=== PATIENT | male | born 1960 | race Caucasian/White ===

== ENCOUNTER 2020-03-01 08:56 | Outpatient (CLI) | payer BC, SELFPAY ==
[2020-03-04 09:51] LABS: COVID-19 RT-PCR Result Negative (Negative)
== END 2020-03-01 09:16 ==
PROVIDERS: PCP Family Medicine; Visit Provider Nurse Practitioner Family
DX: R05 Cough (principal); R06.02 Shortness of breath; R50.9 Fever, unspecified
CPT/HCPCS: U0003

== ENCOUNTER 2021-04-18 20:47 | Outpatient (REF) | payer BC, SELFPAY ==
[2021-04-18 21:16] LABS: ALT 29 U/L (16-63); AST 16 U/L (15-37); Albumin 3.9 g/dL (3.4-5.0); Alkaline Phosphatase 107 U/L (46-116); Anion Gap 8.8 mmol/L (3-11); BUN 18 mg/dL (7-18); Bilirubin, Total 0.6 mg/dL (0.2-1.0); CO2 28.2 mmol/L (21.0-32.0); Calcium 9.2 mg/dL (8.5-10.1); Calculated LDL 125 mg/dL (<100); Chloride 105 mmol/L (98-107); Cholesterol 203 mg/dL (<200); Glucose 89 mg/dL (74-106); HDL Cholesterol 32 mg/dL (40-60); Potassium 4.2 mmol/L (3.5-5.1); Sodium 142 mmol/L (136-145); Total Protein 7.7 g/dL (6.4-8.2); Triglyceride 232 mg/dL (<150)
[2021-04-18 21:45] LABS: Hemoglobin A1C 6.2 % (<5.7)
== END 2021-04-18 20:48 | disposition home or self-care (01) ==
LOC: LBN 20:47
PROVIDERS: PCP Nurse Practitioner Family; Visit Provider Nurse Practitioner Family
DX: Z00.00 Encounter for general adult medical examination without abnormal findings (principal); Z13.220 Encounter for screening for lipoid disorders; Z13.1 Encounter for screening for diabetes mellitus
CPT/HCPCS: 80053; 80061; 83036

== ENCOUNTER 2021-05-09 02:56 | Outpatient (CLI) | payer BC, SELFPAY ==
[2021-05-12 10:10] LABS: PSA, Screening 1.8 ng/mL (0.0-4.5)
== END 2021-05-09 02:57 | disposition home or self-care (01) ==
LOC: LBO 02:56
PROVIDERS: PCP Nurse Practitioner Family; Visit Provider Nurse Practitioner Family
DX: R35.1 Nocturia (principal); Z12.5 Encounter for screening for malignant neoplasm of prostate
CPT/HCPCS: 36415; 84153

== ENCOUNTER → 2022-10-01 12:20 | Outpatient (CLI) | payer BC, MEDICAID, SELFPAY ==
--- NOTE | 2022-10-01 14:19 | DI.RAD_ITS ---
Exam(s) XR LUMBAR SPINE COMPLETE EXAM: XR LUMBAR SPINE COMPLETE CLINICAL HISTORY: Continued, worsening back pain, low back pain, M54.5. TECHNIQUE: 2D digital imaging was performed of the lumbar spine. Five images were obtained. AP, la teral, right oblique, left oblique and L5-S1 spot views were obtained. COMPARISON: No exams were available for comparison FINDINGS: BONES: No fracture or destructive lesion. There are small endplate osteophytes at several levels of t he lumbar spine. Degenerative changes of the facets are seen at L5-S1, left greater than right. DISKS: Intervertebral disc spaces are maintained. ALIGNMENT: Lumbar spinal alignment is within normal limits. No spondylolysis or spondylolisthesis. SOFT TISSUE: Normal. IMPRESSION: Mild lumbar spondylosis. DATA REPOSITORY: RADIATION DOSE DELIVERED:
== END ==
PROVIDERS: PCP Nurse Practitioner Family; Visit Provider Nurse Practitioner Family
DX: M54.59 Other low back pain (principal); M47.816 Spondylosis without myelopathy or radiculopathy, lumbar region
CPT/HCPCS: 72110

== ENCOUNTER 2023-04-29 03:10 | Outpatient (CLI) | payer MEDICAID, SELFPAY ==
[2023-04-29 12:32] LABS: Hemoglobin A1C 6.2 % (<5.7)
[2023-04-29 12:42] LABS: CREATININE 1.1 mg/dL (0.70-1.30); Calculated LDL 98 mg/dL (<100); Cholesterol 163 mg/dL (<200); Estimated GFR 74.96 (mL/min/1.73m2); HDL Cholesterol 35 mg/dL (40-60); Potassium 4.5 mmol/L (3.5-5.1); TSH (W/Ref FT4) 1.55 uIU/mL (0.36-3.74); Triglyceride 154 mg/dL (<150)
== END 2023-04-29 03:11 | disposition home or self-care (01) ==
LOC: LOS 03:10
PROVIDERS: PCP Nurse Practitioner Family; Visit Provider Nurse Practitioner Family
DX: I10 Essential (primary) hypertension (principal); R73.03 Prediabetes; E78.5 Hyperlipidemia, unspecified; E66.8 Other obesity
CPT/HCPCS: 36415; 80061; 82565; 83036; 84132; 84443

== ENCOUNTER 2024-04-27 14:47 | Outpatient (CLI) | payer MEDICARE, SELFPAY ==
[2024-04-27 12:16] LABS: Hemoglobin A1C 6.3 % (<5.7)
[2024-04-27 12:26] LABS: Calculated LDL 96 mg/dL (<100); Cholesterol 161 mg/dL (<200); Estimated GFR 83.52 (mL/min/1.73m2); HDL Cholesterol 35 mg/dL (40-60); Potassium 4.2 mmol/L (3.5-5.1); Triglyceride 151 mg/dL (<150)
== END 2024-04-27 14:48 | disposition home or self-care (01) ==
LOC: LBO 14:48
PROVIDERS: PCP Nurse Practitioner Family; Visit Provider Nurse Practitioner Family
DX: E78.5 Hyperlipidemia, unspecified (principal); I10 Essential (primary) hypertension; R73.03 Prediabetes
CPT/HCPCS: 36415; 80061; 82565; 83036; 84132

== ENCOUNTER 2025-02-23 23:32 | Emergency (ER) | payer MEDICARE, BC, SELFPAY ==
--- NOTE | 2025-02-23 23:36 | W.ED.GENAD ---
Discharge Plan Disposition Patient Disposition: Home Condition: Good Discharge Details Clinical Impression: Right-sided headache, Sinus pause Primary Care Provider: Haris James ED Provider: Nikolai Keating [place] Meds and New Rx's Prescriptions: Continued ibuprofen 800 mg tablet 800 mg PO Q8H PRN (Reason: pain) Qty: 90 0RF losartan 100 mg tablet 100 mg PO DAILY Qty: 90 3RF Discharge Instructions Instructions: Headache, Adult ED Additional Instructions: You were seen for a right sided headache seemingly emanating from posterior neck. You are also having irregular heartbeat and sinus pauses. Your laboratory studies, EKG, imaging studies are all reassuring. With fluids your arrhythmia has resolved and there have been no pauses. Recommend getting some rest and staying hydrated over the weekend. You may take acetaminophen or ibuprofen for recurrent headache. Please follow-up with primary care this coming week. Would probably benefit from outpatient heart monitoring and ECHO. Return to the ED for any syncope, neurologic change, chest pain, shortness of breath, severe worsening headache, other concerns. Referrals: Haris James, [employer] [Primary Care Provider] - [facility] General Mode of arrival: ambulatory. Date/Time Provider Initiated Documentation: 02/23/25 23:33. Limitations to Documentation: no limitations. Information obtained by: patient, RN notes reviewed and old records reviewed. HPI Narrative: Patient presents to ED with complaint of neck pain mostly right-sided radiating up into the head with throbbing type headache and irregular pulse and pounding in his chest. Earlier in the day he had some increased back pain and worsening of right leg pain, some new left leg pain which is since resolved. He has chronic back problems and right lower extremity problems due to previous disc problem. This is currently at his baseline. His left leg is no longer bothering him. He did not have any abdominal pain. This evening while trying to go to bed he developed neck pain, headache, pounding/throbbing in his chest and head. He has felt a little bit lightheaded a couple of times since this started. He denies having any type of chest pain. No neurologic changes. Maybe feeling a little dizzy and off balance but nothing persistent. No real shortness of breath. Mild nausea on and off but no vomiting. No fevers. No recent injuries. He did receive his Shingrix as well as pneumococcal vaccine on Wednesday of this week. Has history of hypertension and borderline hyperlipidemia, prediabetes. Has not had anything like this previously, did not feel right and came in to be evaluated. Related Data Home Medications ?Medication ?Instructions ?Recorded ?Confirmed ibuprofen 800 mg tablet 800 mg PO Q8H PRN pain #90 tabs 10/01/22 02/23/25 losartan 100 mg tablet 100 mg PO DAILY #90 tabs 07/05/24 02/23/25 Previous Rx's ?Medication ?Instructions ?Recorded ibuprofen 800 mg tablet 800 mg PO Q8H PRN pain #90 tabs 10/01/22 losartan 100 mg tablet 100 mg PO DAILY #90 tabs 07/05/24 Allergies Allergy/AdvReac Type Severity Reaction Status Date / Time No Known Allergies Allergy Verified 02/23/25 23:57 Exam Narrative Exam Narrative: Gen: WDWN male in NAD. Vitals per triage. HENT: NC/AT. Normal face. Eyes: PERRL and EOMI. VF in tact to confrontation. Neck: Supple, trachea midline. Chest: Normal respirations. Lungs CTAB. CV: Irregular w/o murmur. Good radial pulses. Abd: S/ND/NT. Neuro: A+Ox3. Normal speech, mentation, gait. CN II-XII in tact. Normal strength. Normal sensation. FTN normal. Ext: No C/C/E. Medical Decision Making Patient presenting to ED with chief complaint of neck pain mostly right-sided radiating into the right head with headache and throbbing/pounding that he can feel in his chest, neck and head. Denies having chest pain. He is neurologically intact. Did have some back and bilateral leg symptoms earlier in the day but completely resolved now with prior history of back problems. Noted to have irregular heart rate on exam. Thought to potentially bigeminy but once on the monitor seemed to be sinus rhythm with pauses. EKG shows the same. He otherwise has normal intervals, axis, ST segments per my read. Did receive vaccines on Wednesday. Otherwise has been feeling completely well and doing well. Will place IV and obtain labs. Will give fluids and prochlorperazine as he is describing a throbbing headache. Will obtain CTA of brain and neck to evaluate for any possible dissection or vessel abnormality. Symptoms are not consistent with SAH. He is not having chest pain or pressure, shortness of breath but I will check troponin. 02:15 - Patient's labs are pretty unremarkable. His white count is elevated, may be related to his immunizations earlier this week. His troponins are normal and flat. Chemistries, kidney function, liver function are fine. He is improved after fluids and prochlorperazine. In fact his rhythm is now sinus with no pauses. His headache is much improved though he still has some discomfort. CTA of head and neck has preliminarily been read as normal with no aneurysm, dissection, stenosis. Have discussed findings with patient and . Will give a dose of ketorolac before discharge. Recommend follow-up with primary care mostly for the arrhythmia, pauses that were noted while here. Probably warrants outpatient monitoring and cardiac ECHO. Patient may use ibuprofen or acetaminophen for recurrent headache. He is encouraged to stay hydrated over the weekend. Return precautions provided. Medical Records Medical records reviewed: Yes I reviewed the patient's medical records. Medical records narrative: PCP notes Lab Data Lab results reviewed: Yes I reviewed the patient's lab results. Lab results narrative: see MDM ECG Data Attestation: I personally reviewed and interpreted this ECG (s) as follows: Prior ECG tracings: not available for review Interpretation: see MDM/EKG [facility] All Active Problems (Updated 02/24/25 @ 02:20 by Nikolai Keating MD) Sinus pause (Acute) Right-sided headache (Acute) Genital warts due to HPV (human papillomavirus) (Acute 04/01/18) Anxiety (Chronic) Sciatica associated with disorder of lumbar spine (Acute) Actinic keratoses (Acute) Acquired buried penis (Acute) Depression (Chronic) Low back pain (Acute) Varicose veins of lower extremity (Acute) needs to compress and elevate Medical History Hyperlipidemia Obesity (BMI 30-39.9) Hypertension Prediabetes Tobacco use disorder CHEWING TOBACCO Quit in November 2022 Surgical History History of umbilical hernia repair done at [facility], Dr. Tejada, has mesh. Family History Mother Skin cancer Depression Diabetes Stroke Father , age 94 Hypertension Brother Skin cancer Hypertension Brother Diabetes Brother Skin cancer Daughter Depression Daughter No problems noted. Social History Smoking/Tobacco Use Status: Former Tobacco Use Tobacco: How many years used: 20 Second Hand Exposure: Yes Smoking risk assessment performed?: Yes Alcohol Intake: current Alcohol Intake frequency: a few times a month Alcohol type: beer Drug use: Never Adopted: No Caregiver/Support person: No Household members: spouse Housing: house Number of Children: 2 Communication Needs: None Education Level: high school Do you need help understanding health information?: Never current occupation: Retired Pets and animals: Yes Pets and animals: cat(s) Sexually active: No Do you think of yourself as: straight/heterosexual Current gender identity: male What is your relationship status?: How often do you talk on the phone with friends or family?: never How often do you get together with friends or relatives?: never How often do you attend scientologist or scientology services?: decline to answer Do you belong to any clubs or organized social groups?: no Panel score (0-1 are the most socially isolated patients): 1 What type of physical activity do you participate in: none Coby/Restorationism: Synagogue Seatbelt use: always Helmet use: Yes Helmet use: always Drive intox or ride w/intox driver courier: No Firearms in home: Yes Firearms unloaded and locked: Yes Do you feel safe at home: Yes Do you feel safe in your relationship?: Yes Victim of physical abuse: No Victim of emotional abuse: No Victim of sexual abuse: No Would you like helpful sources: No
[2025-02-23 23:37] VITALS: BP 160/59; PULSE 72; RESP 16; TEMP 37.2; O2SAT 97
[2025-02-23 23:43] VITALS: BP 160/59; PULSE 72; RESP 16; TEMP 37.2; O2SAT 97
--- NOTE | 2025-02-23 23:45 | RT.EKG_ITS ---
APPROVED REPORT Exam: Resting ECG Reason for Exam: irregular rhythm Patient Location: E HR:78 bpm ECG Measurements Heart Rate 78 AXIS WV 143 P 45 QRSd 88 QRS -29 QT 344 T 20 QTc 420 Conclusion Sinus rhythm...normal P axis, V-rate 60- 99 Sinus pause...long R-R interval, normal QRSd Inferior infarct, old...Q >35mS, II III aVF Normal Hammond/Interval No acute ST changes I have reviewed and interpreted ECG and agree with software generated interpretation.
[2025-02-23 23:57] VITALS: PULSE 78; PULSE 94; RESP 11; O2SAT 98
[2025-02-24] VITALS (20 sets, daily range): BP systolic 115–158; BP diastolic 63–75; PULSE 71–103; RESP 11–33; O2SAT 93–98
[2025-02-24] MEDS: Prochlorperazine 10 MG/2 ML VIAL IVP (00:09)
[2025-02-24] MEDS: Normal Saline 1,000 ML 1000 ML IV (00:09)
[2025-02-24 00:17] LABS: HCT 42.3 % (40.0-50.0); HGB 13.6 g/dL (13.5-17.5); MCH 29.1 pg (27.0-33.0); MCHC 32.2 % (32.0-36.0); MCV 90 fL (80-95); MPV 9.2 fL (8.0-11.0); Platelet Count 387 10^3/uL (130-400); RBC 4.68 10^6/uL (4.36-5.78); RDW 13.1 % (11.8-14.1); RDW-SD 42.9 fL; WBC 16.94 10^3/uL (4.4-10.8)
[2025-02-24 00:26] LABS: Magnesium 2.4 mg/dL
[2025-02-24 00:32] LABS: ALT 33 U/L (16-63); AST 13 U/L (15-37); Albumin 3.5 g/dL (3.4-5.0); Alkaline Phosphatase 102 U/L (46-116); Anion Gap 8.3 mmol/L (3-11); BUN 21 mg/dL (7-18); Bilirubin, Total 0.3 mg/dL (0.2-1.0); CO2 27.7 mmol/L (21.0-32.0); CREATININE 1.2 mg/dL (0.70-1.30); Calcium 9.2 mg/dL (8.5-10.1); Chloride 102 mmol/L (98-107); Glucose 141 mg/dL (74-106); Potassium 4.2 mmol/L (3.5-5.1); Sodium 138 mmol/L (136-145); Total Protein 7.7 g/dL (6.4-8.2)
[2025-02-24 01:05] LABS: Troponin I 10 ng/L (<or=76)
[2025-02-24] MEDS: Omnipaque 350 MG/ML 100 ML BTL IJ (01:23)
[2025-02-24] MEDS: Normal Saline - Diluent 50 ML VIAL IJ (01:24)
--- NOTE | 2025-02-24 01:25 | DI.CT_ITS ---
Exam(s) CT BRAIN NECK CTA EXAM: CT BRAIN NECK CTA CLINICAL HISTORY: right side neck pain/headache. TECHNIQUE: Imaging Protocol: Axial CT angiography was performed with multi-slice acquisition and mu lti-planar and/or 3D reconstructions. CONTRAST MATERIAL: Intravenous: Omnipaque 350 contrast volume:70 mL COMPARISON: No exams were available for comparison FINDINGS: CT Head W/O and W: Ventricles and Extra axial spaces: Normal in size and morphology for the patient's age. Hemorrhage: None. Cerebral parenchyma: Evidence of an acute territorial infarct. Midline shift: None. Brainstem/Cerebellum: Normal. Calvarium: Normal. Visualized Paranasal sinuses/Mastoids: Clear. Soft Tissues: Unremarkable. Enhancement: Unremarkable. CTA Neck W: Common Carotid: Right: No dissection, occlusion or significant stenosis. Left: No dissection, occlusion or significant stenosis. External Carotid: Right: No occlusion or significant stenosis. Left: No occlusion or significant stenosis. Internal Carotid: Right: No dissection, occlusion or significant stenosis. Left: No dissection, occlusion or significant stenosis. Vertebral Artery: Right: No dissection, occlusion or significant stenosis. Left: No dissection, occlusion or significant stenosis. Lung Apices: Normal. Bones: Within normal limits for the patient's age. Soft Tissues: Normal. Thyroid gland: Unremarkable. CTA Brain W: Internal Carotid Arteries: No evidence of an aneurysm, occlusion or significant stenosis. Anterior Cerebral Arteries: Right: No aneurysm, occlusion or significant stenosis. Left: No aneurysm, occlusion or significant stenosis. Middle Cerebral Arteries: Right: No aneurysm, occlusion or significant stenosis. Left: No aneurysm, occlusion or significant stenosis. Posterior Cerebral Arteries: Right: No aneurysm, occlusion or significant stenosis. Left: No aneurysm, occlusion or significant stenosis. Vertebral Arteries: Right: No aneurysm, occlusion or significant stenosis. Left: No aneurysm, occlusion or significant stenosis. Basilar Artery: No aneurysm, occlusion or significant stenosis. IMPRESSION: 1. No large vessel occlusion or significant stenosis on the CT angiography of the head. 2. No acute intracranial process. 3. No occlusion or significant stenosis on the CT angiography of the neck. RADIATION DOSE DELIVERED: 2,247.8mGy.cm Total DLP DATA REPOSITORY: All CT scans at this facility are submitted to the National Radiology Data Registry (NRDR) Dose Index Registry (DIR) with the [employer] (ACR). RADIATION OPTIMIZATION: All CT scans at this facility use at least one of these dose optimization te chniques: automated exposure control; mA and/or kV adjustment per patient size (includes targeted exa ms where dose is matched to clinical indication); or iterative reconstruction.
[2025-02-24 01:40] LABS: Troponin I 12 ng/L (<or=76)
--- NOTE | 2025-02-24 02:01 | DI.VRAD_ITS ---
PROCEDURE INFORMATION: Exam: CTA Head Without And With Contrast, Arteriography Exam date and time: 02/24/2025 12:52 AM Age: 64 years old Clinical indication: Headache and other: Right sided neck pain; Right side neck pain/headache TECHNIQUE: Imaging protocol: Computed tomographic angiography of the head without and with contrast. Exam focused on the arteries. 3D rendering (Not supervised by radiologist): MIP and/or 3D reconstructed images were created by the technologist. Radiation optimization: All CT scans at this facility use at least one of these dose optimization techniques: automated exposure control; mA and/or kV adjustment per patient size (includes targeted exams where dose is matched to clinical indication); or iterative reconstruction. Contrast material: [id number]; Contrast volume: 70 ml; Contrast route: INTRAVENOUS (IV); COMPARISON: No relevant prior studies available. FINDINGS: ANTERIOR CIRCULATION: Right internal carotid artery: Intracranial segment is patent with no significant stenosis or occlusion. No aneurysm. Right middle cerebral artery: No occlusion or significant stenosis. No aneurysm. Right anterior cerebral artery: No occlusion or significant stenosis. No aneurysm. Left internal carotid artery: Intracranial segment is patent with no significant stenosis. No aneurysm. Left middle cerebral artery: No occlusion or significant stenosis. No aneurysm. Left anterior cerebral artery: No occlusion or significant stenosis. No aneurysm. POSTERIOR CIRCULATION: Right vertebral artery: No occlusion or significant stenosis. No aneurysm. Left vertebral artery: No occlusion or significant stenosis. No aneurysm. Basilar artery: No occlusion or significant stenosis. No aneurysm. Right posterior cerebral artery: No occlusion or significant stenosis. No aneurysm. Left posterior cerebral artery: No occlusion or significant stenosis. No aneurysm. HEAD: Brain: Normal. No hemorrhage. Unremarkable white matter. No mass effect. Cerebral ventricles: Normal. No ventriculomegaly. Bones: Unremarkable. No acute fracture. Paranasal sinuses: Visualized sinuses are normal. No fluid levels. Mastoid air cells: Visualized mastoids are normal. No mastoid effusion. Soft tissues: Unremarkable. IMPRESSION: 1. No large vessel occlusion. 2. Unremarkable CT head. PROCEDURE INFORMATION: Exam: CTA Neck Without And With Contrast Exam date and time: 02/24/2025 12:52 AM Age: 64 years old Clinical indication: Headache and other: Right sided neck pain; Right side neck pain/headache TECHNIQUE: Imaging protocol: Computed tomographic angiography of the neck without and with contrast. Exam focused on the cervical segments of the vasculature. 3D rendering (Not supervised by radiologist): MIP and/or 3D reconstructed images were created by the technologist. Radiation optimization: All CT scans at this facility use at least one of these dose optimization techniques: automated exposure control; mA and/or kV adjustment per patient size (includes targeted exams where dose is matched to clinical indication); or iterative reconstruction. Contrast material: [id number]; Contrast volume: 70 ml; Contrast route: INTRAVENOUS (IV); COMPARISON: No relevant prior studies available. FINDINGS: Right common carotid artery: No stenosis. No dissection or occlusion. Right internal carotid artery: No stenosis of the extracranial segment. No dissection or occlusion. Right external carotid artery: No occlusion or stenosis of the origin. Left common carotid artery: No stenosis. No dissection or occlusion. Left internal carotid artery: No stenosis of the extracranial segment. No dissection or occlusion. Left external carotid artery: No occlusion or stenosis of the origin. Right vertebral artery: No stenosis. No dissection or occlusion. Left vertebral artery: No stenosis. No dissection or occlusion. Soft tissues: Normal. No significant soft tissue swelling. Bones/joints: Well-corticated bony lesion in the anterior inferior aspect of C3 vertebral body, likely osteophyte. IMPRESSION: No stenosis or occlusion. REFERENCES: NASCET CRITERIA. The degree of stenosis in the cervical segment of the internal carotid artery is based on NASCET criteria. Normal is no stenosis. Mild is less than 50% stenosis. Moderate is 50-69% stenosis. Severe is 70% to 99% stenosis. Total occlusion is no detectable patent lumen. Dictated and Authenticated by: Roly Gallagher MD. Orderin Rishabh Menchaca MD
[2025-02-24] MEDS: Ketorolac 15 MG/ML VIAL IVP (02:18)
== END 2025-02-24 02:26 | disposition home or self-care (01) ==
PROVIDERS: Emergency Provider Emergency Medicine; PCP Nurse Practitioner Family
DX: R51.9 Headache, unspecified (principal); R11.0 Nausea
CPT/HCPCS: 70496; 70498; 80053; 85027; 93005; 99285; 83735; 84484; 93010; 99284; J0780; J1885; J3490

== ENCOUNTER 2025-03-02 11:20 | Outpatient (CLI) | payer MEDICARE, BC, SELFPAY ==
--- NOTE | 2025-03-02 11:15 | RT.EKG_ITS ---
APPROVED REPORT Exam: Resting ECG Reason for Exam: Repeat EKG Patient Location: O HR:79 bpm ECG Measurements Heart Rate 79 AXIS DE 144 P 60 QRSd 94 QRS -13 QT 377 T 31 QTc 433 Conclusion Sinus rhythm...normal P axis, V-rate 50- 99 Probable left atrial enlargement...P >50mS, <-0.10mV V1 Otherwise normal ECG
== END 2025-03-02 11:21 | disposition home or self-care (01) ==
LOC: DI.CM 11:20
PROVIDERS: PCP Nurse Practitioner Family; Visit Provider Nurse Practitioner Family
DX: I45.5 Other specified heart block (principal); I51.7 Cardiomegaly
CPT/HCPCS: 93010

== ENCOUNTER 2025-03-13 02:34 | Outpatient (CLI) | payer MEDICARE, BC, SELFPAY ==
--- NOTE | 2025-03-13 07:00 | DI.US_ITS ---
Exam(s) US SOFT TISSUE EXTREMITY EXAM: US SOFT TISSUE EXTREMITY CLINICAL HISTORY: swelling and pain rt lower leg,M79.661. TECHNIQUE: Ultrasound was performed using standard protocol. COMPARISON: No exams were available for comparison FINDINGS: Sonographic assessment utilizing grayscale and color Doppler imaging was performed and targeted to th e area of clinical concern. There is no evidence of a soft tissue mass or focal fluid collection to suggest an abscess. There ar e varicose veins present, but the veins are patent and show no evidence of thrombus. The visualized popliteal vein is compressible without evidence of thrombus. IMPRESSION: Unremarkable examination. DATA REPOSITORY:
== END 2025-03-13 02:54 ==
LOC: DI 02:35
PROVIDERS: PCP Nurse Practitioner Family; Visit Provider Nurse Practitioner Family
DX: M79.661 Pain in right lower leg (principal)
CPT/HCPCS: 76881